=== PATIENT | male | born 1935 | race Caucasian/White ===

== ENCOUNTER 2016-09-22 10:19 | Inpatient (IN) | payer MEDICARE, OTHER ==
[~2016-09-22] VITALS: Ht 182.9 cm; Wt 85.0 kg
[~2016-09-22 10:19] MED LIST: ALLOPURINOL300 MG PO; ALTACE10 M1 PO; ASPIRIN LOW81 M1 PO; CENTRUM SILVER PO; COLCHICINE0.6 M2 PO; COLCHICINE0.6 MG PO; COLCRYS0.6 MG PO; CYANOCOBALAM1000 MCG IJ; CYANOCOBALAM1000 MCG IM; FEXOFENADINE H180 MG PO; FISH OIL1200 M1 PO; FLEXERIL OR; FLUTICASONE50 MCG; GLUCOSAMINE1000 M1 PO; LOPID600 MG PO; LOPRESSOR 550 MG/TAB PO; METO50TA52 PO; NIASPAN500 MG PO; OCUVITE PO; PLAVIX75 MG PO; SIMVASTATIN40 MG OR; SIMVASTATIN40 MG PO; STOOL SOFTEN100 MG OR; TRICOR145 MG PO; ULTRAM50 M1 PO; colcrys PO
--- NOTE | 2016-09-22 10:30 | NUR ---
PT TO ROOM VIA WC IN NO ACUTE DISTRESS
[2016-09-22] MEDS ORDERED: COLCHICINE0.6 M2 PO (10:42)
[2016-09-22] MEDS ORDERED: RAMIPRIL2.5 MG PO (10:43)
[2016-09-22] MEDS ORDERED: ASPIRIN 81 LOW81 MG PO (10:43)
[2016-09-22] MEDS ORDERED: FISH OIL1000 MG PO (10:44)
[2016-09-22 11:19] LABS: HEMATOCRIT 35.1 % (39.0-50.0); HEMOGLOBIN 12.4 g/dl (14.0-18.0); IMMATURE GRANULOCYTES 0.4 % (0.0-1.0); MEAN CELL VOLUME 96.4 fL CALC (80.0-100.0); MEAN CORPUSCULAR HGB 34.1 pG CALC (26.0-32.0); MEAN CORPUSCULAR HGB CONC 35.3 g/L CALC (32.0-36.0); NEUT# 7.64 thou/uL (1.82-7.42); RED BLOOD COUNT 3.64 mill/uL (4.70-6.10)
[2016-09-22 11:32] LABS: ALBUMIN 4.1 g/dL (3.2-5.0); ALKALINE PHOSPHATASE 66 u/l (38-126); ANION GAP 17 (6-22 (CALC)); BILIRUBIN, TOTAL 1.4 mg/dL (0.0-1.4); BUN 14 mg/dL (8-23); BUN/CREATININE RATIO 12 (12-20 (CALC)); CARBON DIOXIDE 23 mmol/l (22-30); CHLORIDE 97 mmol/l (95-108); CREATININE 1.1 mg/dL (0.7-1.3); GFR > 60 ML/MIN (>=60 (CALC)); GFR FOR AFR.AMER. > 60 ML/MIN (>=60 (CALC)); GLUCOSE 111 mg/dL (82-115); POTASSIUM 4.2 mmol/l (3.5-5.1); SGOT/AST 56 u/l (19-48); SGPT/ALT 58 u/l (11-66); SODIUM 132 mmol/l (137-146); TOTAL PROTEIN 7.6 g/dL (6.3-8.2)
[2016-09-22 11:44] LABS: MYOGLOBIN 128 ng/mL (0 - 121)
--- NOTE | 2016-09-22 12:16 | NUR ---
PT AND UPDATED ON FINDINGS, CONTINUES TO REST IN THE STRETCHER IN NO ACUTE DISTRESS.
--- NOTE | 2016-09-22 13:23 | NUR ---
PT RETURNS FROM CT SCAN, NOW AWAITING RESULTS.
--- NOTE | 2016-09-22 15:25 | NUR ---
PT TO ROOM VIA STRETCHER ACCOMPANIED BY STAFF; AMBULATORY TO BED WITH USE OF CANE AND MIN ASSIST; PT A/O X3; PT DENIES PAIN; 96% RA, LUNGS COARSE THROUGHOUT; PT STATES COUGH, COLD SYMTPOMS X2 WEEKS, WORSENING SYMTPOMS SINCE WEDNESDAY; TELE MONITOR IN PLACE; ORIENTED TO ROOM AND CALL SYSTEM; WILL CONTINUE TO MONITOR
[2016-09-22 15:27] VITALS: BP 146/67
--- NOTE | 2016-09-22 15:33 | NUR ---
PT TAKEN TO ROOM 281, REPORT WAS TO TOMMY CRUZ.
--- NOTE | 2016-09-22 18:00 | NUR ---
PT TOLERATED DINNER; FAMILY AT BEDSIDE; CALL WALTON WITHIN REACH; WILL CONTINUE TO MONITOR.
[2016-09-22 20:00] VITALS: BP 141/78
--- NOTE | 2016-09-22 21:00 | NUR ---
PT RESTING IN SEMI FOWLERS POSITION WITH FAMILY AT BEDSIDE;PT DENIES ANY PAIN OR DISCOMFORTS;PRODUCTIVE COUGH NOTED;IV SITE FOUND DISLODGED;NEW IV SITE STARTED TO LEFT WRIST BY ANTHONY GARCIA;ASSESSMENT COMPLETED;TELE MONITOR IN PLACE READING SR 77;PT AMBULATED TO RESTROOM AND BACK WITH WEAK GAIT AND THE HELP OF ASSISTED DEVICE;PT RE-ORIENTED TO ROOM AND CALL LIGHT SYSTEM;PT DENIES ANY NEEDS AT THIS TIME;BED IN LOWEST POSITION;URINAL AT BEDSIDE;CALL LIGHT IN REACH;WILL CONTINUE TO MONITOR
[2016-09-22 23:17] VITALS: BP 107/72
--- NOTE | 2016-09-22 23:45 | NUR ---
PT APPEARS TO BE SLEEPING IN SUPINE POSITION;IV FLUIDS INFUSING WELL;NO S/S OF DISTRESS NOTED;RESPIRATIONS EVEN AND UNLABORED;PRODUCTIVE COUGH NOTED AT TIME;TELE MONITOR IN PLACE;URINAL AT BEDSIDE;BED IN LOWEST POSITION WITH FALL PRECAUTIONS IN PLACE;CALL LIGHT WITHIN REACH;WILL CONTINUE TO MONITOR
--- NOTE | 2016-09-23 04:25 | NUR ---
PT RESTING IN SUPINE POSITION;IV SITE INFUSING WELL,SITE SECURED WITH COBAN;PT DENIES ANY PAIN OR DISCOMFORTS;URINAL AT BEDSIDE;TELE IN PLACE;PT TOLD TO CALL FOR ASSISTANCE IF NEEDED;BED IN LOWEST POSITION WITH CALL LIGHT IN REACH;WILL CONTINUE TO MONITOR
[2016-09-23 04:28] VITALS: BP 126/58
[2016-09-23 07:38] VITALS: BP 125/70
--- NOTE | 2016-09-23 07:51 | NUR ---
PT ASSISTED TO CHAIR; ASSISTED WITH BREAKFAST SET UP; CALL WALTON WITHIN REACH
--- NOTE | 2016-09-23 13:00 | NUR ---
PT UP IN CHAIR; VISITING WITH SPOUSE; DENIES PAIN; CALL WALTON WITHIN REACH; WILL CONTINUE TO MONITOR.
--- NOTE | 2016-09-23 15:40 | NUR ---
PT RESTING WITH EYES CLOSED; NO S/SX OF DISTRESS NOTED; IVF INFUSING WITHOUT DIFFICULTY; CALL W[place]TON WITHIN REACH; WILL CONTINUE TO MONITOR.
[2016-09-23 16:40] VITALS: BP 149/65
--- NOTE | 2016-09-23 16:52 | NUR ---
PT VISITING WITH FAMILY; WILL CONTNUE TO MONITOR.
[2016-09-23 19:58] VITALS: BP 133/70
--- NOTE | 2016-09-23 21:30 | NUR ---
PT RESTING IN SEMI FOWLERS POSITION;IV FLUIDS INFUSING WELL TO LEFT WRIST;PT COMPLAINS ABOUT SOME DISCOMFORT WHILE ANTIBIOTIC IS INFUSING;UPON ASSESSMENT IV CATHETER APPEARS TO NOT BE SECURE;DRESSING CHANGED AND SITE SECURED WITH COBAN;PT VERBALIZES RELIEF;ASSESSMENT COMPLETED;SKIN INTACT;TELE MONITOR IN PLACE READING SR 68;URINAL AT BEDSIDE;PT DENIES ANY PAIN OR DISCOMFORTS;PT TOLD TO CALL FOR ASSISTANCE IF NEEDED;SAFETY PRECAUTIONS REINFORCED;BED IN LOWEST POSITION WITH CALL LIGHT IN REACH;WILL CONTINUE TO MONITOR
--- NOTE | 2016-09-24 | NUR ---
PT RESTING IN SUPINE POSITION;NEW IV FLUIDS HUNG AT THIS TIME;PT DENIES ANY PAIN OR DISCOMFORTS;TELE MONITOR IN PLACE;PT TOLD TO CALL FOR ASSISTANCE IF NEEDED;BED IN LOWEST POSITION WITH CALL LIGHT IN REACH;WILL CONTINUE TO MONITOR
[2016-09-24 00:31] VITALS: BP 129/56
[2016-09-24 05:27] VITALS: BP 139/73
--- NOTE | 2016-09-24 05:30 | NUR ---
PT RESTING IN SEMI FOWLERS POSITION;VS OBTAINED BY CHERY DE LA CRUZ;PT DENIES ANY PAIN OR DISCOMFORTS;RESPIRATIONS EVEN AND UNLABORED;IV FLUIDS INFUSING WELL;PT DENIES ANY OTHER NEEDS;BED IN LOWEST POSITION WITH CALL LIGHT IN REACH;WILL CONTINUE TO MONITOR
[2016-09-24 05:37] LABS: HEMATOCRIT 29.8 % (39.0-50.0); HEMOGLOBIN 10.4 g/dl (14.0-18.0); IMMATURE GRANULOCYTES 0.5 % (0.0-1.0); MEAN CELL VOLUME 96.8 fL CALC (80.0-100.0); MEAN CORPUSCULAR HGB 33.8 pG CALC (26.0-32.0); MEAN CORPUSCULAR HGB CONC 34.9 g/L CALC (32.0-36.0); NEUT# 8.29 thou/uL (1.82-7.42); RED BLOOD COUNT 3.08 mill/uL (4.70-6.10); RED CELL DISTRI WIDTH 12.2 % (11.5-15.5)
[2016-09-24 05:57] LABS: ANION GAP 14 (6-22 (CALC)); BUN 18 mg/dL (8-23); BUN/CREATININE RATIO 21 (12-20 (CALC)); CALCIUM 8.4 mg/dL (8.4-10.2); CARBON DIOXIDE 20 mmol/l (22-30); CHLORIDE 108 mmol/l (95-108); CREATININE 0.8 mg/dL (0.7-1.3); GFR > 60 ML/MIN (>=60 (CALC)); GFR FOR AFR.AMER. > 60 ML/MIN (>=60 (CALC)); GLUCOSE 85 mg/dL (82-115); POTASSIUM 4.2 mmol/l (3.5-5.1); SODIUM 137 mmol/l (137-146)
[2016-09-24 07:27] VITALS: BP 129/76
--- NOTE | 2016-09-24 07:30 | NUR ---
PT AROUSED EASILY TO VERBAL STIMULI; DENIES PAIN; IVF INFUSING WITHOUT DIFFICULTY; TELE MONITOR IN PLACE; ENCOURAGE USE OF CALL LIGHT IF ANY ASSISTANCE IS NEEDED; WILL CONTINUE TO MONITOR.
--- NOTE | 2016-09-24 09:49 | NUR ---
PHYSICAL THERAPY IN WITH PT
[2016-09-24] MEDS ORDERED: LEVAQUIN750 MG PO (10:15)
--- NOTE | 2016-09-24 10:30 | NUR ---
DR. LINDA IN TO SEE PT; PLAN OF CARE DISCUSSED
[2016-09-24 11:23] VITALS: BP 133/51
--- NOTE | 2016-09-24 12:03 | NUR ---
PT ASSISTED TO BRP;
[2016-09-24] MEDS ORDERED: PREDNISONE10 MG PO (13:12)
--- NOTE | 2016-09-24 13:41 | NUR ---
Discharge instructions given. Patient verbalizes understanding of same. Discharged in stable condition via Wheelchair to Home with family. All belongings sent with pt.
== END 2016-09-24 13:36 | disposition home or self-care (01) | DRG 195 ==
LOC: ENPENDDIS → ED 10:19 → ED-I 14:15 → ED 14:30 → MS2 14:31
PROVIDERS: Emergency Medicine; ADMIT Internal Medicine; ATTEND Internal Medicine
DX: J18.9 Pneumonia, unspecified organism (principal); I10 Essential (primary) hypertension; I25.10 Atherosclerotic heart disease of native coronary artery without angina pectoris; M10.9 Gout, unspecified; E78.00 Pure hypercholesterolemia, unspecified; Z87.891 Personal history of nicotine dependence; Z95.5 Presence of coronary angioplasty implant and graft
CPT/HCPCS: J1650

== ENCOUNTER 2018-11-24 12:39 | Emergency (ER) | payer MEDICARE, OTHER ==
[~2018-11-24] VITALS: Ht 182.9 cm; Wt 95.0 kg
[~2018-11-24 12:39] MED LIST changes: +ASPIRIN 81 LOW81 MG PO; +FISH OIL1000 MG PO; +LEVAQUIN750 MG PO; +PREDNISONE10 MG PO; +RAMIPRIL2.5 MG PO
[2018-11-24] MEDS ORDERED: GABAPENTIN100 MG PO (13:43)
[2018-11-24 13:46] LABS: HEMATOCRIT 37.4 % (39.0-50.0); HEMOGLOBIN 12.8 g/dl (14.0-18.0); IMMATURE GRANULOCYTES 0.7 % (0.0-5.0); MEAN CORPUSCULAR HGB 34.2 pG CALC (26.0-32.0); MEAN CORPUSCULAR HGB CONC 34.2 g/L CALC (32.0-36.0); NEUT# 3.61 thou/uL (1.82-7.42); RED BLOOD COUNT 3.74 mill/uL (4.70-6.10); RED CELL DISTRI WIDTH 12.6 % (11.5-15.5)
[2018-11-24] MEDS ORDERED: ALTACE10 MG PO (13:46)
[2018-11-24 14:02] LABS: ALKALINE PHOSPHATASE 54 u/l (38-126); ANION GAP 12 (6-22 (CALC)); BILIRUBIN, TOTAL 0.7 mg/dL (0.0-1.4); BUN 14 mg/dL (8-23); BUN/CREATININE RATIO 14 (12-20 (CALC)); CARBON DIOXIDE 22 mmol/l (22-30); CHLORIDE 109 mmol/l (95-108); GFR > 60 ML/MIN (>=60 (CALC)); GFR FOR AFR.AMER. > 60 ML/MIN (>=60 (CALC)); POTASSIUM 4.7 mmol/l (3.5-5.1); SGOT/AST 31 u/l (19-48); SODIUM 139 mmol/l (137-146); TOTAL PROTEIN 5.9 g/dL (6.3-8.2)
[2018-11-24] MEDS ORDERED: DELTASONE20 MG PO (14:18)
[2018-11-24 15:00] VITALS: BP 157/76
== END 2018-11-24 15:00 | disposition home or self-care (01) ==
LOC: ED 12:39
PROVIDERS: Emergency Medicine
DX: M47.22 Other spondylosis with radiculopathy, cervical region (principal); I10 Essential (primary) hypertension; I25.2 Old myocardial infarction; Z95.5 Presence of coronary angioplasty implant and graft

== ENCOUNTER 2019-06-04 14:20 | Emergency (ER) | payer MEDICARE, OTHER ==
[~2019-06-04] VITALS: Ht 182.9 cm; Wt 84.0 kg
[~2019-06-04 14:20] MED LIST changes: +ALTACE10 MG PO; +DELTASONE20 MG PO; +GABAPENTIN100 MG PO
[2019-06-04] MEDS ORDERED: KEFLEX500 M1 PO (15:49)
[2019-06-04 15:56] VITALS: BP 116/57
== END 2019-06-04 16:07 | disposition home or self-care (01) ==
LOC: ED 14:20
DX: S51.812A Laceration without foreign body of left forearm, initial encounter (principal); I10 Essential (primary) hypertension; I25.2 Old myocardial infarction; W22.8XXA Striking against or struck by other objects, initial encounter; Y92.009 Unspecified place in unspecified non-institutional (private) residence as the place of occurrence of the external cause

== ENCOUNTER 2019-07-15 | Observation (INO) | payer MEDICARE, OTHER ==
[~2019-07-15] MED LIST changes: +KEFLEX500 M1 PO
--- NOTE | 2019-07-15 13:41 | NUR ---
PT AMBULATED TO ROOM 6 W/STEADY GAIT. REFUSED WC.
--- NOTE | 2019-07-15 14:01 | NUR ---
NITRO SL HELD BP 125/60 MD AWARE
[2019-07-15 14:14] LABS: ACT PARTIAL THROMBO TIME 27.1 SECONDS (20.0-32.5); INTERNATIONAL NORMALIZED RATIO 1.1 RATIO (0.7-1.3); PROTHROMBIN TIME 11.8 SECONDS (9.0-12.5)
[2019-07-15 14:16] LABS: HEMATOCRIT 38.2 % (39.0-50.0); HEMOGLOBIN 12.7 g/dl (14.0-18.0); IMMATURE GRANULOCYTES 0.4 % (0.0-5.0); MEAN CELL VOLUME 100.5 fL CALC (80.0-100.0); MEAN CORPUSCULAR HGB 33.4 pG CALC (26.0-32.0); MEAN CORPUSCULAR HGB CONC 33.2 g/L CALC (32.0-36.0); NEUT# 2.82 thou/uL (1.82-7.42); RED BLOOD COUNT 3.8 mill/uL (4.70-6.10); RED CELL DISTRI WIDTH 12.7 % (11.5-15.5)
[2019-07-15 14:24] LABS: ALBUMIN 4.3 g/dL (3.2-5.0); ALKALINE PHOSPHATASE 45 u/l (38-126); ANION GAP 14 (6-22 (CALC)); BILIRUBIN, TOTAL 0.8 mg/dL (0.0-1.4); BUN 17 mg/dL (8-23); BUN/CREATININE RATIO 15 (12-20 (CALC)); CARBON DIOXIDE 21 mmol/l (22-30); CHLORIDE 107 mmol/l (95-108); CREATININE 1.1 mg/dL (0.7-1.3); GFR > 60 ML/MIN (>=60 (CALC)); GFR FOR AFR.AMER. > 60 ML/MIN (>=60 (CALC)); LIPASE 96 u/l (23-300); POTASSIUM 4.3 mmol/l (3.5-5.1); SGOT/AST 40 u/l (19-48); SODIUM 137 mmol/l (137-146); TOTAL PROTEIN 6.7 g/dL (6.3-8.2)
--- NOTE | 2019-07-15 15:00 | NUR ---
PT RESTING ON STRETCHER. MAEW. DO. DENIES N/V. ADVISED OF WAIT TIME FOR RESULTS.
[2019-07-15] MEDS ORDERED: STOOL SOFTENER100 MG PO (15:39)
--- NOTE | 2019-07-15 16:00 | NUR ---
PT AWARE OF PENDING ADMIT. MED RED REVIEWED W/PT. VSS. IV SITE HEALTHY.
--- NOTE | 2019-07-15 16:32 | NUR ---
REPORT CALLED TO ANTHONY CARLOS, ON MEDSURG. PT TO MEDSURG IN STABLE CONDITION. IV SITE HEALTHY. DENIES PAIN AT THIS TIME. TELEMETRY IN PLACE.
[2019-07-15 16:45] VITALS: BP 158/73
--- NOTE | 2019-07-15 17:30 | NUR ---
PT ARRIVES TO ROOM 269 BY WHEELCHAIR, ALERT AND ORIENTED X 3, ACCOMPANIED BY HIS NURSE KATIE. ADMISSION ASSESSMENT COMPLETED, PT DENIES CHEST PAIN OR SHORTNESS OF BREATH AT THIS TIME.
[2019-07-15 18:36] VITALS: BP 136/65
--- NOTE | 2019-07-15 19:02 | NUR ---
REPORT FROM BREANNA CRUZ. PT SITTING UP IN BED WATCHING TV. NO APPARENT DISTRESS NOTED. PT DENIES ANY PAIN OR DISCOMFORT. IV SITE APPEARS HEALTHY. [employer] SALES CONSULTANT IN PLACE. DISCUSSED POC. PT VERBALIZED UNDERSTANDING. NO CURRENT WANTS OR NEEDS VOICED. CALL LIGHT WITHIN REACH. WILL CONTINUE TO MONITOR.
--- NOTE | 2019-07-15 21:45 | NUR ---
PT MEDICATED ORDERED. PT DENIES ANY PAIN OR DISCOMFORT. NO APPARENT DISTRESS NOTED. URINAL EMPTIED OF 200ML CLEAR YELLOW URINE. NO CURRENT WANTS OR NEEDS. CALL LIGHT WITHIN REACH. WILL CONTINUE TO MONITOR.
[2019-07-15 23:41] VITALS: BP 119/60
--- NOTE | 2019-07-16 00:05 | NUR ---
LAB AT [facility].
[2019-07-16 03:33] VITALS: BP 122/66
--- NOTE | 2019-07-16 04:18 | NUR ---
PT RESTING IN BED WITH EYES CLOSED. NO APPARENT DISTRESS NOTED. CALL LIGHT WITHIN REACH. WILL CONTINUE TO MONITOR.
[2019-07-16 07:36] VITALS: BP 146/72
--- NOTE | 2019-07-16 09:25 | NUR ---
PT AWAKE, ALERT, ORIENTED X 3. LUNGS CLEAR, RA. NO COMPLAINT OF CHEST PAIN OR SHORTNESS OF BREATH. PT SEEN BY CORY VILLEDA AT THIS TIME.
[2019-07-16 11:06] VITALS: BP 148/67
--- NOTE | 2019-07-16 11:55 | NUR ---
NO COMPLAINTS, NO DISTRESS PT RESTS IN THE BED AT THIS TIME.
--- NOTE | 2019-07-16 13:10 | NUR ---
PT HAS BEEN DISCHARGED TO HOME. DR ALAMO SAW PT, WANTED HIM TO FOLLOW UP WITH DR BERNAL. PT VERBALIZED UNDERSTANDING OF DC INSTRUCTIONS, TAKEN TO VEHICLE IN WHEELCHAIR. PT LEAVES [facility] IN STABLE CONDITION.
== END 2019-07-16 13:04 | disposition home or self-care (01) ==
PROVIDERS: ADMIT Internal Medicine
DX: R07.9 Chest pain, unspecified (principal); I25.10 Atherosclerotic heart disease of native coronary artery without angina pectoris; I10 Essential (primary) hypertension; E78.5 Hyperlipidemia, unspecified; M10.9 Gout, unspecified; I25.2 Old myocardial infarction; Z95.5 Presence of coronary angioplasty implant and graft; Z87.891 Personal history of nicotine dependence
CPT/HCPCS: G0378

== ENCOUNTER 2019-10-26 | Emergency (ER) | payer MEDICARE, OTHER ==
[~2019-10-26] MED LIST changes: +STOOL SOFTENER100 MG PO
[2019-10-26 12:50] LABS: HEMATOCRIT 37.2 % (39.0-50.0); HEMOGLOBIN 12.5 g/dl (14.0-18.0); IMMATURE GRANULOCYTES 0.4 % (0.0-5.0); MEAN CELL VOLUME 100.3 fL CALC (80.0-100.0); MEAN CORPUSCULAR HGB 33.7 pG CALC (26.0-32.0); MEAN CORPUSCULAR HGB CONC 33.6 g/dL CAL (32.0-36.0); NEUT# 5.64 thou/uL (1.82-7.42); RED BLOOD COUNT 3.71 mill/uL (4.70-6.10); RED CELL DISTRI WIDTH 12.8 % (11.5-15.5)
[2019-10-26] MEDS ORDERED: NITROSTAT0.4 MG SL (12:58)
[2019-10-26 13:02] LABS: PROTHROMBIN TIME 10.8 SECONDS (9.0-12.5)
[2019-10-26 13:04] LABS: ALBUMIN 4.1 g/dL (3.2-5.0); ALKALINE PHOSPHATASE 51 u/l (38-126); ANION GAP 12 (6-22 (CALC)); BILIRUBIN, TOTAL 0.8 mg/dL (0.0-1.4); BUN 21 mg/dL (8-23); BUN/CREATININE RATIO 14 (12-20 (CALC)); CARBON DIOXIDE 21 mmol/l (22-30); CHLORIDE 109 mmol/l (95-108); CPK 103 u/l (52-200); CREATININE 1.5 mg/dL (0.7-1.3); GFR 45 ML/MIN (>=60 (CALC)); GFR FOR AFR.AMER. 54 ML/MIN (>=60 (CALC)); LIPASE 94 u/l (23-300); SGOT/AST 41 u/l (19-48); SODIUM 137 mmol/l (137-146); TOTAL PROTEIN 6.6 g/dL (6.3-8.2)
== END 2019-10-26 14:35 | disposition home or self-care (01) ==
DX: T67.5XXA Heat exhaustion, unspecified, initial encounter (principal); I95.89 Other hypotension; I10 Essential (primary) hypertension; I25.10 Atherosclerotic heart disease of native coronary artery without angina pectoris; I25.2 Old myocardial infarction; X30.XXXA Exposure to excessive natural heat, initial encounter; Y93.H2 Activity, gardening and landscaping; Y92.007 Garden or yard of unspecified non-institutional (private) residence as the place of occurrence of the external cause; Z79.01 Long term (current) use of anticoagulants

== ENCOUNTER 2021-11-10 11:27 | Observation (INO) | payer MEDICARE, OTHER ==
[~2021-11-10] VITALS: Ht 182.9 cm; Wt 84.0 kg
[~2021-11-10 11:27] MED LIST changes: +CYANOCOBAL1000 MCG/M IJ; -CYANOCOBALAM1000 MCG IJ; +NITROSTAT0.4 MG SL
[2021-11-10 12:00] VITALS: BP 137/69
[2021-11-10 12:03] LABS: IMMATURE GRANULOCYTES 0.2 % (0.0-5.0); MEAN CELL VOLUME 104.2 fL CALC (80.0-100.0); MEAN CORPUSCULAR HGB 35.1 pG CALC (26.0-32.0); MEAN CORPUSCULAR HGB CONC 33.7 g/dL CAL (32.0-36.0); NEUT# 3.29 thou/uL (1.82-7.42); RED BLOOD COUNT 3.56 mill/uL (4.70-6.10); RED CELL DISTRI WIDTH 12.3 % (11.5-15.5)
[2021-11-10 12:04] LABS: HEMATOCRIT 37.1 % (39.0-50.0); HEMOGLOBIN 12.5 g/dl (14.0-18.0)
[2021-11-10 12:16] LABS: LIPASE 90 u/l (23-300)
[2021-11-10] MEDS ORDERED: NIACIN ER1000 MG PO (14:50)
[2021-11-10 16:46] VITALS: BP 170/73
[2021-11-10 17:36] VITALS: BP 170/73
[2021-11-10 19:21] VITALS: BP 158/71
[2021-11-10 23:53] VITALS: BP 161/74
[2021-11-10 23:55] VITALS: BP 171/79
[2021-11-11 04:49] VITALS: BP 158/69
[2021-11-11 06:11] LABS: MEAN CELL VOLUME 103.7 fL CALC (80.0-100.0); MEAN CORPUSCULAR HGB 34.6 pG CALC (26.0-32.0); MEAN CORPUSCULAR HGB CONC 33.3 g/dL CAL (32.0-36.0); RED BLOOD COUNT 3.76 mill/uL (4.70-6.10); RED CELL DISTRI WIDTH 12.1 % (11.5-15.5)
[2021-11-11 06:29] LABS: ANION GAP 14 (6-22 (CALC)); BUN 13 mg/dL (8-23); BUN/CREATININE RATIO 15 (12-20 (CALC)); CALCULATED LDLCHOLESTEROL 52 mg/dL (62-129 (CALC)); CARBON DIOXIDE 22 mmol/l (22-30); CHLORIDE 106 mmol/l (95-108); CHOLESTEROL HDL RATIO 3.1 (<4.4 (CALC)); CREATININE 0.9 mg/dL (0.7-1.3); GFR > 60 ML/MIN (>=60 (CALC)); GFR FOR AFR.AMER. > 60 ML/MIN (>=60 (CALC)); HDL CHOLESTEROL 37 mg/dL (>=40); POTASSIUM 4.3 mmol/l (3.5-5.1); SODIUM 138 mmol/l (137-146); TOTAL CHOLESTEROL 114 mg/dl (0-199); TOTAL TRIGLYCERIDES 122 mg/dl (30-149); VLDL CHOLESTROL 24 mg/dl (0-38 (CALC))
[2021-11-11 07:32] VITALS: BP 161/71
[2021-11-11 07:33] VITALS: BP 161/71
[2021-11-11 11:03] VITALS: BP 159/73
== END 2021-11-11 14:00 | disposition home or self-care (01) ==
LOC: ED 11:27 → ED-I 13:45 → ED 14:34 → MS2 14:35
PROVIDERS: Internal Medicine; ADMIT Hospitalist; ATTEND Hospitalist
DX: R07.9 Chest pain, unspecified (principal); R07.81 Pleurodynia; I10 Essential (primary) hypertension; E78.5 Hyperlipidemia, unspecified; M10.9 Gout, unspecified; I25.2 Old myocardial infarction; Z95.5 Presence of coronary angioplasty implant and graft; Z87.891 Personal history of nicotine dependence; Z20.822 Contact with and (suspected) exposure to COVID-19
CPT/HCPCS: G0378; J1650